=== PATIENT | male | born 1985 | race African-American/Black ===

== ENCOUNTER 2016-05-05 14:14 | Emergency (ER) | payer OTHER | END 2016-05-05 15:29 | disposition home or self-care (01) | LOC: CFTX 14:14 | DX: R21 Rash and other nonspecific skin eruption (principal); R22.9 Localized swelling, mass and lump, unspecified; F17.210 Nicotine dependence, cigarettes, uncomplicated | CPT/HCPCS: 99282 ==

== ENCOUNTER 2016-08-02 13:08 | Emergency (ER) | payer OTHER ==
--- NOTE | ~2016-08-02 | CR141 ---
[facility]. [facility] A Service [facility] RADIOLOGY TEXT RESULTS PATIENT: BRITTNI GUILLEN JR LOCATION: SED : 89 UNIT #: [id number] AGE: [address]: CORONA DIEGO SEX: M ORDER DR: [id number] [address] [address] [id number] E MR#: [id number] Acc #: [id number] NAME: BRITTNI GUILLEN JR : 1985 SEX: M STUDY DATE/TIME: 08/02/2016 14:02 UNIT: SED ROOM: STUDY DESCRIPTION: CR Hand Min 3 Views Lt Attending Physician: Corona Diego Ordering Physician: Moo Boyer M.D. Primary Care Physician: No Primary Care Physician MEDICAL IMAGING REPORT This report is preliminary unless electronic signature is present. EXAM Left hand series 08/02/2016 HISTORY Smashed with box. FINDINGS e AP lateral and oblique radiographs of the right hand are presented. 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 08/01/2016. There is an oblique fracture involving the proximal to mid shaft of the fourth metacarpal bone. Fracture plane most evident along the radial and central aspect of the metacarpal bone. It is possible that this is an incomplete fracture. Hairline complete fracture not excluded. No distraction displacement or angulation. There is no indication of intraarticular extent. No other fractures are seen. The joint spaces are intact. No soft tissue defect, subcutaneous air or radiodense foreign body. Dictated by... Collins Archuleta M.D. THIS IS AN ELECTRONICALLY VERIFIED REPORT Collins Archuleta M.D. at 08/03/2016 8:25 AM SALOME/rita TD: 08/02/2016 16:28 JOB #: [id number] MEDICAL IMAGING REPORT [facility] A Service [facility] RADIOLOGY TEXT RESULTS PATIENT: BRITTNI GUILLEN JR LOCATION: [facility] #: [id number] : [birth year] UNIT #: [id number] AGE: [address]: CORONA DIEGO SEX: M ORDER DR: Page 1 of 1
== END 2016-08-02 15:20 | disposition home or self-care (01) ==
LOC: SED 13:08
DX: S62.355A Nondisplaced fracture of shaft of fourth metacarpal bone, left hand, initial encounter for closed fracture (principal); F17.210 Nicotine dependence, cigarettes, uncomplicated; X58.XXXA Exposure to other specified factors, initial encounter; Y92.009 Unspecified place in unspecified non-institutional (private) residence as the place of occurrence of the external cause
CPT/HCPCS: 29125; 73130; 99283